=== PATIENT | female | born 1940 | race Caucasian/White ===

== ENCOUNTER 2024-10-08 10:45 | Emergency (ER) | payer MEDICARE, MEDICAID ==
[~2024-10-08] VITALS: Ht 165.1 cm; Wt 93.1 kg
[~2024-10-08 10:45] MED LIST: AMLO5TAB16 PO; APIX5TAB3 PO; BENZ-38 PO; BUPR-726 PO; CEFD300C3 PO; CIPR750T2 PO; FER325T PO; FLUT16SP BOTHNARES; FURO20TA4 PO; GUAI100L97 PO; LACT1CAP26 PO; LEVO112T5 PO; MONT-48 PO; PANT40TA54 PO; POTA-188 PO; SIMV-42 PO; UMEC1DIS PO
[2024-10-08 10:50] VITALS: TEMP 98.3
--- NOTE | 2024-10-08 11:38 | Physician Documentation ---
History of Present Illness ~ Chief Complaint: Mechanical Fall Stated Complaint: FALL/KNEE PAIN Time Seen by MD: 10:52 Primary Medical Doctor: Mónica LANDA This is a 84-year-old female who presents for evaluation of traumatic injuries sustained to the left knee when she fell out of the wheelchair. She states that she was sleeping, and in her sleep lean forward too much, her body lost balance, she fell forward striking her left knee. Firefighters were corn for lift assist. The left knee hurts somewhat yesterday but got much progressively worse today to the point that she is able to stand and bear weight but not able to walk. The pain is worse with range of motion of the knee when attempting to hyperextend or flex greater than 20. The pain radiates into her ankle. Denies head strike. Denies loss of consciousness. Denies any chest pain or difficulty breathing, nausea, vomiting, abdominal pain Tetanus witin 5 years: No (Didnt ask) Medication Reconciliation Allergies: Coded Allergies: cucumber (Verified Allergy, Mild, 10/08/24) codeine (Verified Allergy, Unknown, 09/26/24) iodine (Verified Allergy, Unknown, 09/26/24) Uncoded Allergies: ORANGES (Allergy, Mild, ITCHY, 09/26/24) CONTRERAS PEPPERS (Allergy, Unknown, 01/17/24) STRABERRIES (Allergy, Unknown, 01/17/24) Scheduled Amlodipine Besylate (Amlodipine Besylate), 1 TAB PO DAILY, (Reported) Apixaban (Eliquis), 1 TAB PO BID, (Reported) Benzonatate* (Benzonatate*), 1 CAP PO Q8H Bupropion HCl (Bupropion Xl), 1 TAB PO DAILY, (Reported) Cefdinir* (Cefdinir*), 1 CAP PO DAILY Ciprofloxacin* (Cipro 750MG tablet*), 1 TAB PO DAILY Ferrous Sulfate (Ferrous Sulfate), 325 MG PO DAILY Fluticasone Propionate (Fluticasone Propionate), 2 SPRAYS BOTHNARES DAILY, (Reported) Furosemide (Furosemide), 1 TAB PO BID, (Reported) Lactobacillus Rhamnosus (Culturelle), 10,000 MMU PO BID Levothyroxine Sodium (Levothyroxine Sodium), 112 MCG PO DAILY@07 Montelukast Sodium (Singulair), 1 TAB PO DAILY, (Reported) Pantoprazole Sodium (Pantoprazole Sodium), 1 TAB PO DAILY, (Reported) Potassium Chloride* (Klor-Con*), 1 TAB PO DAILY, (Reported) Simvastatin* (Zocor*), 1 TAB PO DAILY, (Reported) Umeclidinium Brm/Vilanterol Tr (Anoro Ellipta 62.5-25 Mcg INH), 1 PUFFS PO HS, (Reported) Scheduled PRN Guaifenesin (Guaifenesin), 100 MG PO Q6H PRN for cough & congestion Past Medical History Past Medical History: High Cholesterol, Hypertension, Hypothyroidism Past Surgical History: abdominal surgery, cholecystectomy, hysterectomy, orthopedic surgeries Patient History: FH: heart disease MOTHER Alcohol Use: None Drug Use: none Review of Systems ROS 10 point review of systems was performed and unless noted above in HPI is ne gative for acute process/complaint. Physical Exam Vital Signs: Temperature: 98.3, Source: Oral, Heart Rate: 78, Respiratory Rate: 16, BP: 138/75, Pulse Oximetry: 97, Weight: 93.100 Oxygen Flow Rate: 0 Physical Exam GENERAL: Awake, alert, oriented, GCS 15, no apparent distress, non-toxic appearing, answers questions, follows commands appropriately. HEENT: Atraumatic, normocephalic, pupils equal, extraocular muscles intact, sclerae anicteric, mucus membranes moist, oropharynx is clear, no stridor. NECK: supple, full active range of motion, trachea midline, no thyromegaly, no lymphadenopathy, no JVD. CARDIOVASCULAR: regular rate/rhythm, no murmurs/gallops/rubs, Pulses are 2+ in all extremities and symmetric. Capillary refill less than 2 seconds. PULMONARY: Nonlabored, good air movement ,no respiratory distress, speaking in full sentences, clear to auscultation bilaterally, no wheezing, no ronchi, no rales, no accessory muscle use. GASTROINTESTINAL: Soft, non-tender, non-distended, normal active bowel sounds, no organomegaly, no pulsatile masses, no CVA tenderness. NEUROLOGIC: Lucid with normal mental status. Normal facial symmetry. Moves all extremities symmetrically and with purpose. No truncal ataxia. Speech is fluid without evidence of dysarthria or aphasia, no focal deficits appreciated. MUSCULOSKELETAL: There is full range of motion of all extremities. There is no joint pain or joint swelling or joint erythema. There is no muscle pain or tenderness or swelling. EXTREMITIES: warm, well-perfused, no cyanosis, no clubbing, no edema, no acute deformities. Skin: warm, dry, no rashes or lesions, no jaundice, no petechiae orpurpura. No ecchymosis. PSYCHIATRIC: Normal affect, normal insight, normal concentration. Focused exam: There is bruising to the lateral aspect of the left knee, it is tender to palpation, no crepitus, it is somewhat more edematous than a contralateral side. Neurovascularly baseline distal to the site of injury. Range of motion is limited by pain. She is able to flex it from 5 to 20 Progress Results/Orders Results/Orders Orders - MARKOS ORTIZ DO Ct Lower Extremity (10/08/24 11:16) General Nursing Order (10/08/24 ) Completed Orders - MARKOS ORTIZ DO Ct Lower Extremity (10/08/24 11:16) Cbc/Diff (10/08/24 11:38) MG (10/08/24 11:38) CMP (10/08/24 11:38) Hs Troponin I W Calculations (10/08/24 11:38) Hs Troponin I W Calculations (10/08/24 13:38) Hydrocodone/Apap 5/325mg Tab ([place] 5/32 (10/08/24 14:10) Medications Received in ER Medications (Trade) Dose Ordered Sig/Hany Route PRN Reason Start Time Stop Time Status Last Admin Dose Admin ([place] 5/325mg tablet) 1 tab ONCE ONCE PO 10/08/24 14:10 10/08/24 14:11 DC 10/08/24 14:17 1 TAB Vital Signs 10/08/24 10/08/24 10/08/24 10/08/24 10:50 11:30 11:34 12:00 Temp 98.3 Pulse 78 65 62 Resp 16 16 16 16 B/P (MAP) 138/75 124/50 (74) 136/69 (91) Pulse Ox 97 96 93 O2 Flow Rate 0 0 10/08/24 10/08/24 12:30 14:17 Pulse 64 Resp 16 15 B/P (MAP) 107/62 (77) Pulse Ox 94 Laboratory Tests Test 10/08/24 11:04 10/08/24 13:50 White Blood Count 7.2 Red Blood Count 3.01 L Hemoglobin 8.0 L Hematocrit 24.3 L Mean Corpuscular Volume 80.9 Mean Corpuscular Hemoglobin 26.5 L Mean Corpuscular Hemoglobin Concent 32.7 L Red Cell Distribution Width 17.6 H Platelet Count 280 Mean Platelet Volume 7.2 L Neutrophils (%) (Auto) 65.8 Lymphocytes (%) (Auto) 13.1 L Monocytes (%) (Auto) 13.5 H Eosinophils (%) (Auto) 6.7 H Basophils (%) (Auto) 0.9 Neutrophils # (Auto) 4.8 Lymphocytes # (Auto) 1.0 L Monocytes # (Auto) 1.0 H Eosinophils # (Auto) 0.5 Basophils # (Auto) 0.1 CBC Comment Sodium Level 140 Potassium Level 3.5 Chloride Level 103 Carbon Dioxide Level 27.4 Anion Gap 10 Blood Urea Nitrogen 29 H Creatinine 2.02 H Estimated GFR/1.73 m2 24 BUN/Creatinine Ratio 14.4 Glucose Level 91 Calcium Level 8.7 Magnesium Level 2.0 Total Bilirubin 0.8 Aspartate Amino Transf (AST/SGOT) 19 Alanine Aminotransferase (ALT/SGPT) 9 L Alkaline Phosphatase 94 Troponin I High Sensitivity 13 16 Total Protein 7.5 Albumin 2.6 L Globulin 4.9 H Albumin/Globulin Ratio 0.5 L Chemistry Comments Troponin I High Sens Percent Delta 23 Troponin I Hi Sens Absolute Change 3 Medical Decision Making Findings Facility Status: ED Holds, RME process The plan was discussed with the patient, who demonstrates clear understanding of the plan and is in agreement with the plan unless otherwise noted in the chart. All questions have been answered, all concerns were addressed unless otherwise documented. I was available throughout their ED stay for frequent reassessment and questions. Differential Diagnoses (considered and possible or likely): [Fall from wheelchair, acute traumatic pain, knee contusion versus knee fracture, less likely need dislocation. Somewhat less likely dehydration, electrolyte derangement, ACS as a cause of her weakness.] ??Differential Diagnoses (considered and unlikely, not requiring evaluation currently): [No evidence of neurovascular injury] MDM Data Please see HPI for the following: Independent Historians and external Records Review. Historian: [Patient] Independent Historians: ?[EMS] Medication Management: [Reviewed medication list] Social History and determinants: [Reviewed] Please see the body of the note for the following: Any independent interpretations of ECG, imaging studies. All vitals signs/haemodynamics, ordered tests were independently reviewed and interpreted by myself. Nursing triage complaint and vitals reviewed, additional nursing notes were reviewed as available and I agree unless otherwise noted or documented in c ontradiction in the chart Vital Signs: Independently reviewed Labs: Independently interpreted Imaging: Independently interpreted Old Medical Records: Independently reviewed, see HPI for relevant summary and information Pulse Oximetry: [98%] interpreted as [normal on room air] by me [Superintendent Greens: [Regular Rate, Regular rhythm, no ectopy, NSR] reviewed and interpreted by me] Additionally notably showing: [Hemodynamics reviewed. The patient is not febrile, not tachycardic, no evidence of hypotension respiratory distress. CBC shows anemia, known to the patient, she takes iron pills for it. Appears stable compared to prior six months' worth of labs. Chemistry was obtained as well showing chronic kidney disease, known, 2- troponins. CT of the knee was obtained showing severe tricompartmental DJD, osteophyte formation, joint effusion noted. There is a loose intra-articular body. No fracture.] Tests considered but not ordered include: [] Social Determinants of Health Impact: Patient was evaluated in [facility] [place] to healthcare due to below par ratio of patient to medical providers. [] Comorbid Conditions Impacting Present Evaluation and Care/Treatment: [Multiple, see list] Management Discussions with other Healthcare Providers: [None] Treatment and Disposition Medication Management (Given or considered): [Pain management]. See EMR for details Consideration for Hospitalization/Escalation/Deescalation of Care: Admission for observation has been considered, [however the patient is able to tolerate p.o., their symptoms are controlled, they are able to rely on oral medications, and their chief complaint/diagnosis can be managed on outpatient basis.] ?ED Course:?[There has been no clinical deterioration during her stay in the emergency department. I have offered admission for observation and physical therapy, however the patient declines. She is elated to be going home. Trial of ambulation was performed and she was able to ambulate with a what both patient and her daughter described as her baseline ambulation capacity.] ?Shared decision making:?[Patient is hemodynamically stable for discharge home with follow with their primary care provider. [ ] Specific and cautious return precautions provided and discussed with full understanding. Any incidental findings were also discussed and follow up recommendations given. [] All questions answered. Patient/family were able to verbalize back return precautions. Patient/family agree to plan. Copies of imaging and laboratory studies were provided.] Code status:?FULL Please see the full Electronic Medical Record for full details of nursing documentation, medications list, other records of complete past medical history and conditions, vital signs, laboratory studies, and any radiologic study interpretations by radiologists. Portions of this note were completed using [employer] dictation software and as a result there may exist minor errors in spelling. I have reviewed elements of past family and social history and agree as included in note. Departure Disposition: 01 HOME / SELF CARE / HOMELESS Impression: Primary Impression: Fall Additional Impressions: Acute traumatic pain Contusion of left knee Condition: Improved Discharge Instructions: Contusion Referrals: NO PRIMARY CARE PROVIDER (PCP) Education Educated: Patient Educated regarding: diagnosis, treatment, prognosis, need for follow up Signature Scribe Signature: No scribe Attestation: This note accurately reflects clinical decisions, work performed by myself, DO ANGEL Don NICHOLAS M DO Oct 08, 2024 11:38
[2024-10-08 11:46] LABS: MEAN PLATELET VOLUME 7.2 FL (7.4-10.4); RED CELL DISTRIBUTION WIDTH 17.6 % (11.5-14.5)
[2024-10-08 11:56] LABS: CREATININE 2.02 MG/DL (0.40-0.90); TOTAL CARBON DIOXIDE 27.4 MMOL/L (24-32); eCRCL 19 ML/MIN; eGFR 24 ML/MIN
--- NOTE | 2024-10-08 12:29 | RADIOLOGY REPORT ---
CT CT LOWER EXTREMITY INDICATION: fall, pain knee to ankle, unable to walk/bend EXAM DATE: 10/08/2024 11:05 AM COMPARISON: MR MRI LOWER EXTREMITY RIGHT on DOS: 09/27/24, MR MRI LOWER EXTREMITY RIGHT on DOS: 05/08/24 RADIATION DOSE: CTDIvol: 16 mGy, DLP: 625 mGy*cm PROCEDURE: Helical CT images were obtained of the knee without intravenous contrast. Sagittal and cor onal reconstructions are provided. ADDITIONAL IMAGES: None FINDINGS: BONES: No fracture.Normal anatomic alignment. 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 JOINT SPACES: Small joint effusion with intra-articular loose body. SOFT TISSUES: Swollen VESSELS: Atherosclerosis. IMPRESSION: No acute fracture. 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 Small joint effusion with intra-articular loose body.
[2024-10-08] MEDS: HYDROcodone/acetaminophen 5mg/325mg tablet PO ONE (14:17)
[2024-10-08 14:49] VITALS: BP 147/74; PULSE 71; RESP 16; O2SAT 98
== END 2024-10-08 14:51 | disposition home or self-care (01) ==
LOC: ER 10:45
DX: S80.02XA Contusion of left knee, initial encounter (principal); G89.11 Acute pain due to trauma; E78.00 Pure hypercholesterolemia, unspecified; E03.9 Hypothyroidism, unspecified; I10 Essential (primary) hypertension; Z90.49 Acquired absence of other specified parts of digestive tract; Z90.710 Acquired absence of both cervix and uterus; Z88.5 Allergy status to narcotic agent; Z88.8 Allergy status to other drugs, medicaments and biological substances; Z79.899 Other long term (current) drug therapy; W05.0XXA Fall from non-moving wheelchair, initial encounter; Y93.89 Activity, other specified; Y92.89 Other specified places as the place of occurrence of the external cause; Y99.8 Other external cause status
CPT/HCPCS: 36415; 73700; 80053; 83735; 84484; 85025; 99285